=== PATIENT | female | born 1950 | race Caucasian/White ===

== ENCOUNTER 2016-12-02 06:50 | Day surgery (SDC) | payer OTHER ==
[~2016-12-02 06:50] MED LIST: CATAPRES0.3 M1 PO; COREG25 M1 PO; HUMALOG KW200 UNIT/1 SC; HYDROCHLOROTH12.5 M3 PO; LOW DOSE ASPIRI81 M3 PO; METFORMIN HCL500 M3 PO; ONGLYZA5 M1 PO; PRILOSEC20 M1 PO; PROGRAF0.5 M1 PO; SENNA8.6 M2 PO; VITAMIN D31000 UNI3 PO; VOTRIENT200 M1 PO; ZEBETA10 M1 PO; ZESTRIL40 M2 PO
[2016-12-02 07:22] LABS: BASO % 0.3 % (0-2); EOS % 0.2 % (0-7); HCT-HEMATOCRIT 30.6 % (34.0-49.0); HGB-HEMOGLOBIN 9.7 gm/dl (12.0-15.5); IMMATURE GRANULOCYTES ABSOLUTE 0.04 tho/cmm (0-0.03); IMMATURE GRANULOCYTES PERCENT 0.4 % (0-0.3); LYMPH % 12.7 % (20-45); LYMPH ABSOLUTE COUNT 1.4 tho/cmm (0.8-4.5); MCH (MEAN CORPUSCULAR HGB) 23.8 pg (28.0-32.0); MCHC MEAN CORPUSCULAR HGB CONC 31.7 % (32.0-36.0); MEAN PLATELET VOLUME 9.6 cmc (9.4-12.4); MONO % 12.1 % (0-12); MONOCYTE ABSOLUTE COUNT 1.3 tho/cmm (0.0-1.2); NEUTROPHILS % 74.3 % (40-80); PLATELET COUNT 179 tho/cmm (150-450); RED BLOOD COUNT 4.08 mil/cmm (4.00-5.20); RED CELL DISTRIBUTION WIDTH 18.6 % (12.4-16.4); WHITE BLOOD COUNT 10.8 tho/cmm (4.0-10.0)
[2016-12-02 07:31] LABS: INR 1.3 INR (0.9-1.1); PROTHROMBIN TIME 15.8 SECONDS (9.0-13.6)
[2016-12-02 07:42] LABS: ALB/GLOB RATIO 0.5 (0.8-2.0); ALBUMIN 2.6 g/dl (3.5-5.0); ALKALINE PHOSPHATASE 332 U/L (33-138); ALT/SGPT 41 U/L (12-78); ANION GAP 14 mmol/L (0-20); AST/SGOT 58 U/L (10-40); BILIRUBIN,TOTAL 0.9 mg/dl (0-1.5); BLOOD UREA NITROGEN 12 mg/dl (6-24); CALCIUM 8.8 mg/dl (8.5-10.5); CARBON DIOXIDE-VENOUS 24 mmol/L (22-32); CHLORIDE 101 mmol/l (96-110); CREATININE 0.68 mg/dl (0.50-1.10); GLUCOSE 127 mg/dL (70-110); POTASSIUM 4.3 mmol/L (3.7-5.1); SODIUM 135 mmol/L (135-145); eGFR VALUE FOR BLACK >90 mL/Min
[2016-12-08] MEDS ORDERED: PREDNISOLONE ACE5 M1 LEFT EYE (14:02)
[2016-12-08] MEDS ORDERED: OFLOXACIN5 M3 LEFT EYE (14:02)
[2017-02-18] MEDS ORDERED: DOXYCYCLINE HY100 M3 PO (14:23)
[2017-02-18] MEDS ORDERED: PROTONIX40 M2 PO (14:29)
== END 2016-12-02 15:00 ==
LOC: SHSB 06:50 → PACU 10:42 → SHSB 11:40
PROVIDERS: Radiology Diagnostic Radiology
PROC: B4101ZZ Fluoroscopy of Abdominal Aorta using Low Osmolar Contrast (ICD-10-PCS; principal; 2016-12-02)
PROC: B4121ZZ Fluoroscopy of Hepatic Artery using Low Osmolar Contrast (ICD-10-PCS; 2016-12-02)
PROC: 3E0 Administration, Physiological Systems and Anatomical Regions, Introduction (ICD-10-PCS; 2016-12-02)
DX: C22.8 Malignant neoplasm of liver, primary, unspecified as to type (principal); I10 Essential (primary) hypertension; E11.9 Type 2 diabetes mellitus without complications; J40 Bronchitis, not specified as acute or chronic; Z79.4 Long term (current) use of insulin; Z79.82 Long term (current) use of aspirin; Z79.899 Other long term (current) drug therapy; Z90.49 Acquired absence of other specified parts of digestive tract; Z90.89 Acquired absence of other organs; Z94.4 Liver transplant status; Z98.890 Other specified postprocedural states
CPT/HCPCS: A9540; C1769; C1887; J1100; J1200; J1956; J2405; Q9967

== ENCOUNTER 2016-12-12 06:50 | Day surgery (SDC) | payer OTHER ==
[~2016-12-12 06:50] MED LIST changes: +OFLOXACIN5 M3 LEFT EYE; +PREDNISOLONE ACE5 M1 LEFT EYE
[2016-12-12 07:23] LABS: BASO % 0.2 % (0-2); EOS % 0.1 % (0-7); HCT-HEMATOCRIT 29.6 % (34.0-49.0); HGB-HEMOGLOBIN 9.4 gm/dl (12.0-15.5); IMMATURE GRANULOCYTES ABSOLUTE 0.06 tho/cmm (0-0.03); IMMATURE GRANULOCYTES PERCENT 0.5 % (0-0.3); LYMPH % 14.6 % (20-45); LYMPH ABSOLUTE COUNT 1.7 tho/cmm (0.8-4.5); MCH (MEAN CORPUSCULAR HGB) 23.3 pg (28.0-32.0); MCHC MEAN CORPUSCULAR HGB CONC 31.8 % (32.0-36.0); MCV (MEAN CELL VOLUME) 73.4 fl (82.0-96.0); MEAN PLATELET VOLUME 9.2 cmc (9.4-12.4); MONO % 15.5 % (0-12); MONOCYTE ABSOLUTE COUNT 1.8 tho/cmm (0.0-1.2); NEUTROPHILS % 69.1 % (40-80); PLATELET COUNT 166 tho/cmm (150-450); RED BLOOD COUNT 4.03 mil/cmm (4.00-5.20); RED CELL DISTRIBUTION WIDTH 19.6 % (12.4-16.4); WHITE BLOOD COUNT 11.6 tho/cmm (4.0-10.0)
[2016-12-12 07:35] LABS: INR 1.4 INR (0.9-1.1)
[2016-12-12 07:37] LABS: ALB/GLOB RATIO 0.4 (0.8-2.0); ALBUMIN 2.4 g/dl (3.5-5.0); ALT/SGPT 42 U/L (12-78); ANION GAP 12 mmol/L (0-20); AST/SGOT 67 U/L (10-40); BILIRUBIN,TOTAL 1.5 mg/dl (0-1.5); BLOOD UREA NITROGEN 11 mg/dl (6-24); CALCIUM 8.6 mg/dl (8.5-10.5); CARBON DIOXIDE-VENOUS 25 mmol/L (22-32); CHLORIDE 100 mmol/l (96-110); CREATININE 0.71 mg/dl (0.50-1.10); GLUCOSE 121 mg/dL (70-110); POTASSIUM 4.3 mmol/L (3.7-5.1); SODIUM 133 mmol/L (135-145); eGFR VALUE FOR BLACK >90 mL/Min
[2016-12-12 07:39] LABS: ALKALINE PHOSPHATASE 404 U/L (33-138)
[2016-12-12 18:31] LABS: EOS % 0.3 % (0-7); HCT-HEMATOCRIT 29.5 % (34.0-49.0); IMMATURE GRANULOCYTES ABSOLUTE 0.08 tho/cmm (0-0.03); LYMPH % 12.4 % (20-45); MCH (MEAN CORPUSCULAR HGB) 22.6 pg (28.0-32.0); MCHC MEAN CORPUSCULAR HGB CONC 30.5 % (32.0-36.0); MCV (MEAN CELL VOLUME) 74.1 fl (82.0-96.0); MEAN PLATELET VOLUME 9.4 cmc (9.4-12.4); MONO % 3.9 % (0-12); MONOCYTE ABSOLUTE COUNT 0.3 tho/cmm (0.0-1.2); NEUTROPHIL ABSOLUTE COUNT 6.3 tho/cmm (1.6-8.0); NEUTROPHIL-AUTOMATED 6.3 tho/cmm (1.6-8.0); NEUTROPHILS % 82.4 % (40-80); PLATELET COUNT 135 tho/cmm (150-450); RED BLOOD COUNT 3.98 mil/cmm (4.00-5.20); RED CELL DISTRIBUTION WIDTH 19.7 % (12.4-16.4); WHITE BLOOD COUNT 7.7 tho/cmm (4.0-10.0)
[2016-12-12 18:46] LABS: ALB/GLOB RATIO 0.4 (0.8-2.0); ALBUMIN 2.2 g/dl (3.5-5.0); ALKALINE PHOSPHATASE 378 U/L (33-138); ALT/SGPT 42 U/L (12-78); ANION GAP 16 mmol/L (0-20); AST/SGOT 61 U/L (10-40); BILIRUBIN,DIRECT 0.8 mg/dl (0.0-0.3); BILIRUBIN,INDIRECT 0.7 mg/dL (0.0-1.0); BILIRUBIN,TOTAL 1.5 mg/dl (0-1.5); BLOOD UREA NITROGEN 14 mg/dl (6-24); CALCIUM 8.2 mg/dl (8.5-10.5); CARBON DIOXIDE-VENOUS 23 mmol/L (22-32); CHLORIDE 100 mmol/l (96-110); CREATININE 0.94 mg/dl (0.50-1.10); POTASSIUM 4.5 mmol/L (3.7-5.1); SODIUM 134 mmol/L (135-145); eGFR VALUE FOR BLACK 74 mL/Min
[2016-12-12 18:50] LABS: GLUCOSE 231 mg/dL (70-110)
[2016-12-13 05:57] LABS: ALB/GLOB RATIO 0.4 (0.8-2.0); ALKALINE PHOSPHATASE 334 U/L (33-138); ALT/SGPT 37 U/L (12-78); ANION GAP 14 mmol/L (0-20); AST/SGOT 51 U/L (10-40); BILIRUBIN,DIRECT 0.5 mg/dl (0.0-0.3); BILIRUBIN,INDIRECT 0.6 mg/dL (0.0-1.0); BILIRUBIN,TOTAL 1.1 mg/dl (0-1.5); BLOOD UREA NITROGEN 17 mg/dl (6-24); CALCIUM 8.4 mg/dl (8.5-10.5); CARBON DIOXIDE-VENOUS 23 mmol/L (22-32); CHLORIDE 102 mmol/l (96-110); CREATININE 0.89 mg/dl (0.50-1.10); GLUCOSE 239 mg/dL (70-110); POTASSIUM 4.3 mmol/L (3.7-5.1); SODIUM 135 mmol/L (135-145); eGFR VALUE FOR BLACK 79 mL/Min
[2016-12-13 06:12] LABS: HCT-HEMATOCRIT 26.2 % (34.0-49.0); HGB-HEMOGLOBIN 8.2 gm/dl (12.0-15.5); IMMATURE GRANULOCYTES ABSOLUTE 0.08 tho/cmm (0-0.03); IMMATURE GRANULOCYTES PERCENT 0.9 % (0-0.3); LYMPH % 10.6 % (20-45); LYMPH ABSOLUTE COUNT 0.9 tho/cmm (0.8-4.5); MCHC MEAN CORPUSCULAR HGB CONC 31.3 % (32.0-36.0); MCV (MEAN CELL VOLUME) 73.6 fl (82.0-96.0); MONO % 6.9 % (0-12); MONOCYTE ABSOLUTE COUNT 0.6 tho/cmm (0.0-1.2); NEUTROPHIL ABSOLUTE COUNT 7.1 tho/cmm (1.6-8.0); NEUTROPHIL-AUTOMATED 7.1 tho/cmm (1.6-8.0); NEUTROPHILS % 81.6 % (40-80); RED BLOOD COUNT 3.56 mil/cmm (4.00-5.20); RED CELL DISTRIBUTION WIDTH 19.5 % (12.4-16.4); WHITE BLOOD COUNT 8.7 tho/cmm (4.0-10.0)
[2016-12-13 07:38] LABS: PLATELET COUNT 120 tho/cmm (150-450)
[2016-12-13] MEDS ORDERED: NORCO 5-325 TA1 EACH PO (10:12)
[2016-12-13] MEDS ORDERED: ZOFRAN8 M1 PO (10:16)
[2016-12-13] MEDS ORDERED: MOTRIN IB200 M1 PO (10:18)
[2016-12-13] MEDS ORDERED: PRILOSEC OTC20 M1 PO (10:18)
[2016-12-13] MEDS ORDERED: LEVAQUIN500 M1 PO (10:19)
[2016-12-13] MEDS ORDERED: MEDROL4 M2 PO (10:20)
[2017-02-18] MEDS ORDERED: DOXYCYCLINE HY100 M3 PO (14:23)
[2017-02-18] MEDS ORDERED: PROTONIX40 M2 PO (14:29)
== END 2016-12-13 11:15 ==
LOC: RADSP 06:50 → SHSA 06:51 → 5WF 13:30
PROVIDERS: Hospitalist; Nurse Practitioner; Radiology Diagnostic Radiology
PROC: B412ZZZ Fluoroscopy of Hepatic Artery (ICD-10-PCS; principal; 2016-12-12)
PROC: 04L33ZZ Occlusion of Hepatic Artery, Percutaneous Approach (ICD-10-PCS; 2016-12-12)
DX: C22.8 Malignant neoplasm of liver, primary, unspecified as to type (principal); I10 Essential (primary) hypertension; M19.042 Primary osteoarthritis, left hand; M19.041 Primary osteoarthritis, right hand; E11.9 Type 2 diabetes mellitus without complications; H40.9 Unspecified glaucoma; D64.9 Anemia, unspecified; D72.829 Elevated white blood cell count, unspecified; Z79.2 Long term (current) use of antibiotics; Z79.4 Long term (current) use of insulin; Z79.82 Long term (current) use of aspirin; Z79.84 Long term (current) use of oral hypoglycemic drugs; Z79.899 Other long term (current) drug therapy; Z90.49 Acquired absence of other specified parts of digestive tract; Z90.89 Acquired absence of other organs; Z94.4 Liver transplant status; Z98.41 Cataract extraction status, right eye; Z90.721 Acquired absence of ovaries, unilateral; Z98.890 Other specified postprocedural states
CPT/HCPCS: C1769; C1887; J1100; J1200; J1815; J1956; J2405; Q9967

== ENCOUNTER 2016-12-28 13:13 | Inpatient (IN) | payer OTHER ==
[~2016-12-28 13:13] MED LIST changes: +LEVAQUIN500 M1 PO; +MEDROL4 M2 PO; +MOTRIN IB200 M1 PO; +NORCO 5-325 TA1 EACH PO; +PRILOSEC OTC20 M1 PO; +ZOFRAN8 M1 PO
[2016-12-28 16:56] LABS: MAGNESIUM 1.4 mg/dl (1.8-2.6); PHOSPHOROUS 3.1 mg/dl (2.5-4.9)
[2016-12-28 17:41] LABS: TSH-THYROID STIMULATING HORM. 0.67 uIU/ml (0.40-3.80)
[2016-12-28 18:11] LABS: ALB/GLOB RATIO 0.4 (0.8-2.0); ALBUMIN 1.9 g/dl (3.5-5.0); ALKALINE PHOSPHATASE 305 U/L (33-138); ALT/SGPT 47 U/L (12-78); ANION GAP 17 mmol/L (0-20); AST/SGOT 63 U/L (10-40); BILIRUBIN,TOTAL 3.7 mg/dl (0-1.5); BLOOD UREA NITROGEN 18 mg/dl (6-24); CALCIUM 8.2 mg/dl (8.5-10.5); CARBON DIOXIDE-VENOUS 22 mmol/L (22-32); CHLORIDE 88 mmol/l (96-110); CREATININE 0.87 mg/dl (0.50-1.10); GLUCOSE 188 mg/dL (70-110); POTASSIUM 4.8 mmol/L (3.7-5.1); SODIUM 122 mmol/L (135-145); eGFR VALUE FOR BLACK 82 mL/Min
[2016-12-28 22:31] LABS: URINE BILIRUBIN NEGATIVE (NEG); URINE BLOOD NEGATIVE (NEG); URINE GLUCOSE (UA) NEGATIVE (NEG); URINE KETONE NEGATIVE (NEG); URINE LEUKOCYTE ESTERASE NEGATIVE (NEG); URINE NITRITE NEGATIVE (NEG); URINE PH 6.5 (5.0-8.0); URINE PROTEIN NEGATIVE (NEG); URINE SPECIFIC GRAVITY 1.005 (1.003-1.030)
[2016-12-28 22:36] LABS: URINE COLOR YELLOW
[2016-12-28 22:37] LABS: URINE APPEARANCE SL CLOUDY
[2016-12-28 23:27] LABS: URINE SODIUM-RANDOM 56 mmol/L (20-110)
[2016-12-29] LABS: URINE CREATININE-RANDOM 13 mg/dl (30-125)
[2016-12-29 04:37] LABS: INR 1.5 INR (0.9-1.1); PROTHROMBIN TIME 17.1 SECONDS (9.0-13.6)
[2016-12-29 04:46] LABS: EOS % 0.2 % (0-7); HGB-HEMOGLOBIN 7.6 gm/dl (12.0-15.5); IMMATURE GRANULOCYTES ABSOLUTE 0.02 tho/cmm (0-0.03); IMMATURE GRANULOCYTES PERCENT 0.2 % (0-0.3); LYMPH % 9.3 % (20-45); LYMPH ABSOLUTE COUNT 0.9 tho/cmm (0.8-4.5); MCH (MEAN CORPUSCULAR HGB) 23.8 pg (28.0-32.0); MCV (MEAN CELL VOLUME) 72.8 fl (82.0-96.0); MONO % 15.2 % (0-12); MONOCYTE ABSOLUTE COUNT 1.5 tho/cmm (0.0-1.2); NEUTROPHIL ABSOLUTE COUNT 7.6 tho/cmm (1.6-8.0); NEUTROPHIL-AUTOMATED 7.6 tho/cmm (1.6-8.0); NEUTROPHILS % 75.1 % (40-80); PLATELET COUNT 75 tho/cmm (150-450); RED CELL DISTRIBUTION WIDTH 22.4 % (12.4-16.4); WHITE BLOOD COUNT 10.1 tho/cmm (4.0-10.0)
[2016-12-29 04:47] LABS: ALB/GLOB RATIO 0.5 (0.8-2.0); ALBUMIN 1.9 g/dl (3.5-5.0); ALKALINE PHOSPHATASE 318 U/L (33-138); ALT/SGPT 43 U/L (12-78); ANION GAP 15 mmol/L (0-20); AST/SGOT 55 U/L (10-40); BILIRUBIN,DIRECT 2.3 mg/dl (0.0-0.3); BILIRUBIN,INDIRECT 0.8 mg/dL (0.0-1.0); BILIRUBIN,TOTAL 3.1 mg/dl (0-1.5); BLOOD UREA NITROGEN 18 mg/dl (6-24); CALCIUM 7.9 mg/dl (8.5-10.5); CARBON DIOXIDE-VENOUS 23 mmol/L (22-32); CHLORIDE 90 mmol/l (96-110); CREATININE 0.81 mg/dl (0.50-1.10); GLUCOSE 188 mg/dL (70-110); HCT-HEMATOCRIT 23.3 % (34.0-49.0); MAGNESIUM 1.3 mg/dl (1.8-2.6); MCHC MEAN CORPUSCULAR HGB CONC 32.6 % (32.0-36.0); PHOSPHOROUS 3.1 mg/dl (2.5-4.9); SODIUM 124 mmol/L (135-145); eGFR VALUE FOR BLACK 89 mL/Min
[2016-12-30 05:28] LABS: INR 1.4 INR (0.9-1.1); PROTHROMBIN TIME 16.4 SECONDS (9.0-13.6)
[2016-12-30 05:43] LABS: ALBUMIN 1.8 g/dl (3.5-5.0); ALT/SGPT 50 U/L (12-78); ANION GAP 14 mmol/L (0-20); AST/SGOT 77 U/L (10-40); BILIRUBIN,TOTAL 2.8 mg/dl (0-1.5); BLOOD UREA NITROGEN 16 mg/dl (6-24); CALCIUM 8.1 mg/dl (8.5-10.5); CARBON DIOXIDE-VENOUS 23 mmol/L (22-32); CHLORIDE 94 mmol/l (96-110); CREATININE 0.77 mg/dl (0.50-1.10); GLUCOSE 150 mg/dL (70-110); MAGNESIUM 1.8 mg/dl (1.8-2.6); POTASSIUM 4.1 mmol/L (3.7-5.1); SODIUM 127 mmol/L (135-145); eGFR VALUE FOR BLACK >90 mL/Min
[2016-12-30 05:47] LABS: ALB/GLOB RATIO 0.4 (0.8-2.0); ALKALINE PHOSPHATASE 314 U/L (33-138); BILIRUBIN,DIRECT 2.1 mg/dl (0.0-0.3); BILIRUBIN,INDIRECT 0.7 mg/dL (0.0-1.0)
[2016-12-30 05:55] LABS: BASO % 0.1 % (0-2); EOS % 0.1 % (0-7); HGB-HEMOGLOBIN 7.5 gm/dl (12.0-15.5); IMMATURE GRANULOCYTES ABSOLUTE 0.03 tho/cmm (0-0.03); IMMATURE GRANULOCYTES PERCENT 0.3 % (0-0.3); LYMPH % 7.9 % (20-45); LYMPH ABSOLUTE COUNT 0.8 tho/cmm (0.8-4.5); MCV (MEAN CELL VOLUME) 72.8 fl (82.0-96.0); MONO % 13.7 % (0-12); MONOCYTE ABSOLUTE COUNT 1.4 tho/cmm (0.0-1.2); NEUTROPHIL ABSOLUTE COUNT 7.9 tho/cmm (1.6-8.0); NEUTROPHIL-AUTOMATED 7.9 tho/cmm (1.6-8.0); NEUTROPHILS % 77.9 % (40-80); PLATELET COUNT 81 tho/cmm (150-450); RED BLOOD COUNT 3.12 mil/cmm (4.00-5.20); RED CELL DISTRIBUTION WIDTH 22.6 % (12.4-16.4); WHITE BLOOD COUNT 10.1 tho/cmm (4.0-10.0)
[2016-12-30 06:02] LABS: HCT-HEMATOCRIT 22.7 % (34.0-49.0)
[2016-12-30] MEDS ORDERED: LASIX40 M1 PO (14:29)
[2016-12-30] MEDS ORDERED: ALDACTONE25 M1 PO (14:29)
[2017-02-18] MEDS ORDERED: DOXYCYCLINE HY100 M3 PO (14:23)
[2017-02-18] MEDS ORDERED: PROTONIX40 M2 PO (14:29)
== END 2016-12-30 17:48 | DRG 641 ==
LOC: PCUA 13:13
PROVIDERS: Hospitalist; Internal Medicine Nephrology; Specialist; ADMIT Family Medicine
PROC: 02HV33Z Insertion of Infusion Device into Superior Vena Cava, Percutaneous Approach (ICD-10-PCS; principal; 2016-12-28)
DX: E87.1 Hypo-osmolality and hyponatremia (principal); Z94.4 Liver transplant status; C22.9 Malignant neoplasm of liver, not specified as primary or secondary; E46 Unspecified protein-calorie malnutrition; D69.6 Thrombocytopenia, unspecified; E83.42 Hypomagnesemia; T50.2X5A Adverse effect of carbonic-anhydrase inhibitors, benzothiadiazides and other diuretics, initial encounter; Z79.891 Long term (current) use of opiate analgesic; Z51.5 Encounter for palliative care; E11.9 Type 2 diabetes mellitus without complications; Z79.4 Long term (current) use of insulin; I10 Essential (primary) hypertension; E78.5 Hyperlipidemia, unspecified; D63.8 Anemia in other chronic diseases classified elsewhere; D72.829 Elevated white blood cell count, unspecified; K21.9 Gastro-esophageal reflux disease without esophagitis; Z79.82 Long term (current) use of aspirin; Z68.28 Body mass index [BMI] 28.0-28.9, adult; E80.7 Disorder of bilirubin metabolism, unspecified
CPT/HCPCS: C1751; J1650; J1815; J1940; J2405; J3475; Q9967

== ENCOUNTER 2017-01-05 17:55 | Inpatient (IN) | payer OTHER ==
[~2017-01-05 17:55] MED LIST changes: +ALDACTONE25 M1 PO; +LASIX40 M1 PO
[2017-01-05 18:46] LABS: HCT-HEMATOCRIT 24.7 % (34.0-49.0); HGB-HEMOGLOBIN 8.1 gm/dl (12.0-15.5); MCH (MEAN CORPUSCULAR HGB) 24.2 pg (28.0-32.0); MCHC MEAN CORPUSCULAR HGB CONC 32.8 % (32.0-36.0); MCV (MEAN CELL VOLUME) 73.7 fl (82.0-96.0); NEUTROPHIL-AUTOMATED 25.2 tho/cmm (1.6-8.0); PLATELET COUNT 97 tho/cmm (150-450); RED BLOOD COUNT 3.35 mil/cmm (4.00-5.20); RED CELL DISTRIBUTION WIDTH 22.9 % (12.4-16.4); WHITE BLOOD COUNT 31.8 tho/cmm (4.0-10.0)
[2017-01-05 19:00] LABS: BASO % 0.3 % (0-2); BASO ABSOLUTE COUNT 0.1 tho/cmm (0.0-0.2); EOS % 0.2 % (0-7); EOSINOPHIL ABSOLUTE COUNT 0.1 tho/cmm (0.0-0.7); IMMATURE GRANULOCYTES PERCENT 7.2 % (0-0.3); LYMPH % 5.8 % (20-45); LYMPH ABSOLUTE COUNT 1.8 tho/cmm (0.8-4.5); MONO % 7.1 % (0-12); MONOCYTE ABSOLUTE COUNT 2.3 tho/cmm (0.0-1.2); NEUTROPHIL ABSOLUTE COUNT 25.2 tho/cmm (1.6-8.0); NEUTROPHILS % 79.4 % (40-80)
[2017-01-05 19:13] LABS: ALB/GLOB RATIO 0.4 (0.8-2.0); ALBUMIN 1.7 g/dl (3.5-5.0); ALT/SGPT 98 U/L (12-78); ANION GAP 18 mmol/L (0-20); AST/SGOT 158 U/L (10-40); BILIRUBIN,TOTAL 3.6 mg/dl (0-1.5); BLOOD UREA NITROGEN 73 mg/dl (6-24); CALCIUM 8.5 mg/dl (8.5-10.5); CARBON DIOXIDE-VENOUS 21 mmol/L (22-32); CHLORIDE 93 mmol/l (96-110); CREATININE 3.26 mg/dl (0.50-1.10); GLUCOSE 155 mg/dL (70-110); POTASSIUM 5.7 mmol/L (3.7-5.1); SODIUM 126 mmol/L (135-145); eGFR VALUE FOR BLACK 17 mL/Min
[2017-01-05 19:22] LABS: PROCALCITONIN 3.96 ng/ml (0.05-0.09)
[2017-01-05 19:26] LABS: ALKALINE PHOSPHATASE 586 U/L (33-138)
[2017-01-05 19:45] LABS: URINE APPEARANCE HAZY; URINE BILIRUBIN SMALL (NEG); URINE BLOOD NEGATIVE (NEG); URINE COLOR DARK YELLOW; URINE GLUCOSE (UA) NEGATIVE (NEG); URINE KETONE NEGATIVE (NEG); URINE LEUKOCYTE ESTERASE POSITIVE (NEG); URINE NITRITE NEGATIVE (NEG); URINE PROTEIN SMALL (NEG)
[2017-01-05 19:54] LABS: URINE BACTERIA 1+; URINE RBC 0-1 /[HPF] (0-5)
[2017-01-05] MEDS ORDERED: PROLIA60 MG/1 M1 SC (20:12)
[2017-01-06 02:28] LABS: INR 1.5 INR (0.9-1.1); PROTHROMBIN TIME 17.5 SECONDS (9.0-13.6)
[2017-01-06 03:09] LABS: ABG CO2 ARTERIAL 21 mmol/L (21-27); ARTERIAL BLD GAS O2 SATURATION 95 % (95-98); ARTERIAL BLOOD GAS PCO2 33 mmHg (32-45); ARTERIAL PO2 79 mmHg (70-100); BICARBONATE 20 mmol/L (21-28); BLOOD GAS BASE EXCESS -3 mM/L (-/+3); PH 7.41 Units (7.35-7.45)
[2017-01-06 04:31] LABS: HGB-HEMOGLOBIN 7.2 gm/dl (12.0-15.5); MCH (MEAN CORPUSCULAR HGB) 23.8 pg (28.0-32.0); MCV (MEAN CELL VOLUME) 74.3 fl (82.0-96.0); NEUTROPHIL-AUTOMATED 21.7 tho/cmm (1.6-8.0); PLATELET COUNT 75 tho/cmm (150-450); RED BLOOD COUNT 3.03 mil/cmm (4.00-5.20); RED CELL DISTRIBUTION WIDTH 22.9 % (12.4-16.4)
[2017-01-06 04:32] LABS: HCT-HEMATOCRIT 22.5 % (34.0-49.0)
[2017-01-06 04:34] LABS: INR 1.5 INR (0.9-1.1); PROTHROMBIN TIME 18.2 SECONDS (9.0-13.6)
[2017-01-06 04:45] LABS: ALB/GLOB RATIO 0.3 (0.8-2.0); ALBUMIN 1.3 g/dl (3.5-5.0); ALT/SGPT 77 U/L (12-78); ANION GAP 15 mmol/L (0-20); AST/SGOT 120 U/L (10-40); BILIRUBIN,TOTAL 2.7 mg/dl (0-1.5); BLOOD UREA NITROGEN 63 mg/dl (6-24); C-REACTIVE PROTEIN 14.5 mg/dl (0-0.9); CALCIUM 8.3 mg/dl (8.5-10.5); CARBON DIOXIDE-VENOUS 20 mmol/L (22-32); CHLORIDE 98 mmol/l (96-110); CREATININE 2.73 mg/dl (0.50-1.10); GLUCOSE 155 mg/dL (70-110); MAGNESIUM 1.8 mg/dl (1.8-2.6); PHOSPHOROUS 5.1 mg/dl (2.5-4.9); POTASSIUM 5.1 mmol/L (3.7-5.1); SODIUM 128 mmol/L (135-145); eGFR VALUE FOR BLACK 20 mL/Min
[2017-01-06 04:49] LABS: ALKALINE PHOSPHATASE 512 U/L (33-138)
[2017-01-06 06:34] LABS: BAND % 22 % (0-20); BAND ABSOLUTE COUNT 5.9 tho/cmm (0-2.0); EOSINOPHIL % 1 % (0-7); WBC MORPHOLOGY TOXIC GRANULATION
[2017-01-06 14:05] LABS: ANION GAP 16 mmol/L (0-20); BLOOD UREA NITROGEN 61 mg/dl (6-24); CALCIUM 8.3 mg/dl (8.5-10.5); CARBON DIOXIDE-VENOUS 21 mmol/L (22-32); CHLORIDE 101 mmol/l (96-110); CREATININE 2.54 mg/dl (0.50-1.10); GLUCOSE 120 mg/dL (70-110); POTASSIUM 5.1 mmol/L (3.7-5.1); SODIUM 133 mmol/L (135-145); eGFR VALUE FOR BLACK 22 mL/Min
[2017-01-07 05:36] LABS: HGB-HEMOGLOBIN 7.2 gm/dl (12.0-15.5); MCV (MEAN CELL VOLUME) 74.7 fl (82.0-96.0); NEUTROPHIL-AUTOMATED 16.2 tho/cmm (1.6-8.0); PLATELET COUNT 78 tho/cmm (150-450); RED CELL DISTRIBUTION WIDTH 23.2 % (12.4-16.4); WHITE BLOOD COUNT 22.1 tho/cmm (4.0-10.0)
[2017-01-07 05:41] LABS: BASO % 0.2 % (0-2); EOS % 0.2 % (0-7); HCT-HEMATOCRIT 22.4 % (34.0-49.0); IMMATURE GRANULOCYTES ABSOLUTE 2.53 tho/cmm (0-0.03); IMMATURE GRANULOCYTES PERCENT 11.4 % (0-0.3); LYMPH % 7.1 % (20-45); LYMPH ABSOLUTE COUNT 1.6 tho/cmm (0.8-4.5); MCHC MEAN CORPUSCULAR HGB CONC 32.1 % (32.0-36.0); MONO % 8.1 % (0-12); MONOCYTE ABSOLUTE COUNT 1.8 tho/cmm (0.0-1.2); NEUTROPHIL ABSOLUTE COUNT 16.2 tho/cmm (1.6-8.0)
[2017-01-07 05:47] LABS: ALBUMIN 1.6 g/dl (3.5-5.0); ANION GAP 15 mmol/L (0-20); BLOOD UREA NITROGEN 61 mg/dl (6-24); CALCIUM 8.1 mg/dl (8.5-10.5); CARBON DIOXIDE-VENOUS 20 mmol/L (22-32); CHLORIDE 102 mmol/l (96-110); CREATININE 2.54 mg/dl (0.50-1.10); GLUCOSE 108 mg/dL (70-110); PHOSPHOROUS 5.2 mg/dl (2.5-4.9); POTASSIUM 4.4 mmol/L (3.7-5.1); SODIUM 133 mmol/L (135-145); eGFR VALUE FOR BLACK 22 mL/Min
[2017-01-08 03:59] LABS: ANION GAP 15 mmol/L (0-20); BLOOD UREA NITROGEN 52 mg/dl (6-24); CALCIUM 7.9 mg/dl (8.5-10.5); CARBON DIOXIDE-VENOUS 20 mmol/L (22-32); CHLORIDE 105 mmol/l (96-110); CREATININE 2.17 mg/dl (0.50-1.10); GLUCOSE 142 mg/dL (70-110); POTASSIUM 3.9 mmol/L (3.7-5.1); SODIUM 136 mmol/L (135-145); eGFR VALUE FOR BLACK 27 mL/Min
[2017-01-09 04:29] LABS: ALT/SGPT 43 U/L (12-78); ANION GAP 16 mmol/L (0-20); AST/SGOT 63 U/L (10-40); BILIRUBIN,TOTAL 2.7 mg/dl (0-1.5); BLOOD UREA NITROGEN 43 mg/dl (6-24); CARBON DIOXIDE-VENOUS 20 mmol/L (22-32); CHLORIDE 106 mmol/l (96-110); GLUCOSE 164 mg/dL (70-110); MAGNESIUM 1.9 mg/dl (1.8-2.6); POTASSIUM 3.8 mmol/L (3.7-5.1); SODIUM 138 mmol/L (135-145); eGFR VALUE FOR BLACK 32 mL/Min
[2017-01-09 04:34] LABS: ALB/GLOB RATIO 0.9 (0.8-2.0); ALBUMIN 2.7 g/dl (3.5-5.0); ALKALINE PHOSPHATASE 562 U/L (33-138)
[2017-01-09 04:40] LABS: HGB-HEMOGLOBIN 6.5 gm/dl (12.0-15.5); MCH (MEAN CORPUSCULAR HGB) 24.6 pg (28.0-32.0); MCV (MEAN CELL VOLUME) 76.1 fl (82.0-96.0); NEUTROPHIL-AUTOMATED 11.4 tho/cmm (1.6-8.0); PLATELET COUNT 51 tho/cmm (150-450); RED BLOOD COUNT 2.64 mil/cmm (4.00-5.20); RED CELL DISTRIBUTION WIDTH 23.9 % (12.4-16.4); WHITE BLOOD COUNT 15.4 tho/cmm (4.0-10.0)
[2017-01-09 04:51] LABS: HCT-HEMATOCRIT 20.1 % (34.0-49.0); MCHC MEAN CORPUSCULAR HGB CONC 32.3 % (32.0-36.0)
[2017-01-09 13:53] LABS: BAND % 16 % (0-20); BAND ABSOLUTE COUNT 2.5 tho/cmm (0-2.0)
[2017-01-10 05:00] LABS: ANION GAP 13 mmol/L (0-20); BLOOD UREA NITROGEN 38 mg/dl (6-24); CALCIUM 8.3 mg/dl (8.5-10.5); CARBON DIOXIDE-VENOUS 22 mmol/L (22-32); CHLORIDE 108 mmol/l (96-110); CREATININE 1.67 mg/dl (0.50-1.10); GLUCOSE 150 mg/dL (70-110); POTASSIUM 4.3 mmol/L (3.7-5.1); SODIUM 139 mmol/L (135-145); eGFR VALUE FOR BLACK 37 mL/Min
[2017-01-10 05:07] LABS: HGB-HEMOGLOBIN 7.7 gm/dl (12.0-15.5); MCH (MEAN CORPUSCULAR HGB) 24.8 pg (28.0-32.0); MCV (MEAN CELL VOLUME) 76.5 fl (82.0-96.0); NEUTROPHIL-AUTOMATED 15.5 tho/cmm (1.6-8.0); RED CELL DISTRIBUTION WIDTH 23.4 % (12.4-16.4); WHITE BLOOD COUNT 20.6 tho/cmm (4.0-10.0)
[2017-01-10 05:10] LABS: HCT-HEMATOCRIT 23.7 % (34.0-49.0); MCHC MEAN CORPUSCULAR HGB CONC 32.5 % (32.0-36.0)
[2017-01-10 05:11] LABS: PLATELET COUNT 46 tho/cmm (150-450)
[2017-01-10 06:03] LABS: BAND % 12 % (0-20); BAND ABSOLUTE COUNT 2.5 tho/cmm (0-2.0)
[2017-01-11 04:46] LABS: ANION GAP 13 mmol/L (0-20); BLOOD UREA NITROGEN 33 mg/dl (6-24); CALCIUM 8.8 mg/dl (8.5-10.5); CARBON DIOXIDE-VENOUS 23 mmol/L (22-32); CHLORIDE 108 mmol/l (96-110); CREATININE 1.42 mg/dl (0.50-1.10); GLUCOSE 179 mg/dL (70-110); POTASSIUM 4.5 mmol/L (3.7-5.1); SODIUM 139 mmol/L (135-145); eGFR VALUE FOR BLACK 45 mL/Min
[2017-01-11] MEDS ORDERED: NORCO 5-325 TA1 EACH PO (13:30)
[2017-01-11] MEDS ORDERED: CEFDINIR300 M1 PO (13:31)
[2017-02-18] MEDS ORDERED: DOXYCYCLINE HY100 M3 PO (14:23)
[2017-02-18] MEDS ORDERED: PROTONIX40 M2 PO (14:29)
== END 2017-01-11 16:05 | disposition home health service (06) | DRG 871 ==
LOC: EDMED 17:55 → EMR2 21:18 → CCU 22:10 → PCUA 01-06 19:15 → 5WE 01-09 22:22
PROVIDERS: Emergency Medicine; Family Medicine; Internal Medicine; Internal Medicine Nephrology; Registered Nurse; ADMIT Hospitalist
PROC: 02HV33Z Insertion of Infusion Device into Superior Vena Cava, Percutaneous Approach (ICD-10-PCS; principal; 2017-01-06)
PROC: 30243N1 Transfusion of Nonautologous Red Blood Cells into Central Vein, Percutaneous Approach (ICD-10-PCS; 2017-01-09)
DX: A41.9 Sepsis, unspecified organism (principal); R65.21 Severe sepsis with septic shock; N17.9 Acute kidney failure, unspecified; E87.2 Acidosis; C22.8 Malignant neoplasm of liver, primary, unspecified as to type; Z94.4 Liver transplant status; E46 Unspecified protein-calorie malnutrition; E87.1 Hypo-osmolality and hyponatremia; D68.9 Coagulation defect, unspecified; N39.0 Urinary tract infection, site not specified; E87.5 Hyperkalemia; E80.6 Other disorders of bilirubin metabolism; R74.0 Nonspecific elevation of levels of transaminase and lactic acid dehydrogenase [LDH]; D63.1 Anemia in chronic kidney disease; D69.6 Thrombocytopenia, unspecified; I10 Essential (primary) hypertension; E78.5 Hyperlipidemia, unspecified; E11.9 Type 2 diabetes mellitus without complications; Z79.4 Long term (current) use of insulin; M85.80 Other specified disorders of bone density and structure, unspecified site; Z79.82 Long term (current) use of aspirin; Z79.899 Other long term (current) drug therapy; B96.20 Unspecified Escherichia coli [E. coli] as the cause of diseases classified elsewhere; R60.0 Localized edema
CPT/HCPCS: C1751; J0610; J1815; J1940; J1956; J2270; J2405; J2543; J3370; J7030; J7050; P9016; P9040; P9045; P9047

== ENCOUNTER 2017-01-28 21:45 | Emergency (ER) | payer OTHER ==
[~2017-01-28 21:45] MED LIST changes: +CEFDINIR300 M1 PO; +PROLIA60 MG/1 M1 SC
[2017-01-29 00:26] LABS: ANION GAP 14 mmol/L (0-20); BLOOD UREA NITROGEN 23 mg/dl (6-24); CARBON DIOXIDE-VENOUS 25 mmol/L (22-32); CHLORIDE 105 mmol/l (96-110); CREATININE 1.29 mg/dl (0.50-1.10); GLUCOSE 121 mg/dL (70-110); POTASSIUM 4.3 mmol/L (3.7-5.1); SODIUM 140 mmol/L (135-145); eGFR VALUE FOR BLACK 51 mL/Min
[2017-01-29 00:34] LABS: BASO % 0.1 % (0-2); EOS % 0.7 % (0-7); EOSINOPHIL ABSOLUTE COUNT 0.1 tho/cmm (0.0-0.7); HCT-HEMATOCRIT 31.1 % (34.0-49.0); HGB-HEMOGLOBIN 9.6 gm/dl (12.0-15.5); IMMATURE GRANULOCYTES ABSOLUTE 0.04 tho/cmm (0-0.03); IMMATURE GRANULOCYTES PERCENT 0.5 % (0-0.3); LYMPH % 17.1 % (20-45); LYMPH ABSOLUTE COUNT 1.5 tho/cmm (0.8-4.5); MCH (MEAN CORPUSCULAR HGB) 26.1 pg (28.0-32.0); MCHC MEAN CORPUSCULAR HGB CONC 30.9 % (32.0-36.0); MEAN PLATELET VOLUME 9.3 cmc (9.4-12.4); MONO % 13.1 % (0-12); MONOCYTE ABSOLUTE COUNT 1.1 tho/cmm (0.0-1.2); NEUTROPHIL ABSOLUTE COUNT 5.8 tho/cmm (1.6-8.0); NEUTROPHIL-AUTOMATED 5.8 tho/cmm (1.6-8.0); NEUTROPHILS % 68.5 % (40-80); PLATELET COUNT 107 tho/cmm (150-450); RED BLOOD COUNT 3.68 mil/cmm (4.00-5.20); RED CELL DISTRIBUTION WIDTH 24.5 % (12.4-16.4); WHITE BLOOD COUNT 8.5 tho/cmm (4.0-10.0)
[2017-01-29 00:37] LABS: MCV (MEAN CELL VOLUME) 84.5 fl (82.0-96.0)
[2017-02-18] MEDS ORDERED: DOXYCYCLINE HY100 M3 PO (14:23)
[2017-02-18] MEDS ORDERED: PROTONIX40 M2 PO (14:29)
== END 2017-01-29 01:46 ==
LOC: EDMED 21:45
PROVIDERS: Nurse Practitioner Family
DX: C22.8 Malignant neoplasm of liver, primary, unspecified as to type (principal); R11.2 Nausea with vomiting, unspecified; E11.9 Type 2 diabetes mellitus without complications; I10 Essential (primary) hypertension; Z79.4 Long term (current) use of insulin; Z79.82 Long term (current) use of aspirin; Z90.89 Acquired absence of other organs; Z98.890 Other specified postprocedural states
CPT/HCPCS: J2405